=== PATIENT | female | born 1960 | race Caucasian/White ===

== ENCOUNTER 2024-08-29 15:24 | Emergency (ER) | payer BC, SELFPAY ==
[2024-08-29 15:26] VITALS: BP 138/85
[2024-08-29 16:15] LABS: % Basophils 0.6 % (0-2); % Eosinophils 1.4 % (0-6); % Immature Granulocytes 0.3 % (0-0.5); % Lymphocytes 43.3 % (20.5-51.1); % Monocytes 14.2 % (1.7-9.3); % Neutrophils 40.2 % (42.2-75.2); Absolute Eosinophils 0.1 10^3/uL (0-0.7); Absolute Lymphocytes 1.6 10^3/uL (1.2-3.4); Absolute Monocytes 0.5 10^3/uL (0.1-0.6); Absolute Neutrophils 1.4 10^3/uL (1.4-6.5); Hematocrit 41.5 % (37.0-47.0); Hemoglobin 13.6 g/dL (12.0-16.0); Mean Corp Hgb Conc. 32.8 g/dL (33.0-37.0); Mean Corpuscular Hgb 28.9 pg (27.0-31.0); Mean Corpuscular Volume 88.3 fL (81.0-99.0); Mean Platelet Volume 10.7 fL (7.4-10.4); Nucleated Red Blood Cells % 0 %; Platelet Count 209 10^3/uL (130-400); Red Cell Dist. Width 12.6 % (11.5-14.5); White Blood Cell Count 3.6 10^3/uL (4.8-10.8)
[2024-08-29 16:28] LABS: ALT (SGPT) 243 U/L (0-35); AST (SGOT) 112 U/L (14-36); Albumin 4.5 g/dl (3.5-5.0); Alkaline Phosphatase 63 U/L (38-126); Blood Urea Nitrogen 18 mg/dl (7-17); Calcium 9.3 mg/dl (8.4-10.2); Carbon Dioxide 25 mmol/L (22-30); Chloride 102 mmol/L (98-107); Glucose 81 mg/dl (70-99); Potassium 4.4 mmol/L (3.5-5.1); Sodium 137 mmol/L (135-145); Total Bilirubin 0.2 mg/dl (0.2-1.3); Total Protein 7.1 g/dl (6.3-8.2); eGFR > 60.00
[2024-08-29 16:52] LABS: COVID-19 Antigen Negative (Negative)
[2024-08-29 20:00] LABS: Urine Albumin Negative (Neg - Trace); Urine Bilirubin Negative (Negative); Urine Character Clear (Clear); Urine Color Straw; Urine Glucose Negative (Negative); Urine Ketone Negative (Negative); Urine Leukocyte Negative (Negative); Urine Nitrite Negative (Negative); Urine Occult Blood Negative (Negative); Urine Specific Gravity 1.005 (<1.030); Urine Urobilinogen Negative (Neg - 1+)
--- NOTE | 2024-08-29 20:05 | ED.GENMED ---
History of Present Illness
General
Chief Complaint: Hyper/Hypo Thermia Problem
Time Seen by Provider: 08/29/24 18:53
History of Present Illness
History of Present Illness:
64-year-old female presents to the emergency department for evaluation of tactile fever with low temperatures at home. Notes that her thermometer was reading 9495 �F during periods of tactile fevers. Ongoing for the past 3 to 4 days. Multiple
members of her household with influenza. No chest pain or dyspnea. Denies any dysuria, rashes, nausea, vomiting, or diarrhea.
Past History
Past History
ED Past Medical History: GERD, Other (kidney stones) and Other (migraines)
ED Past Surgical History: Appendectomy, Cholecystectomy and Gynecological (hysterectomy)
Social History
Personal:
Living: with family
Review of Systems
Review of Systems
Allergies reviewed?: Yes
All Other Systems: ROS reviewed and negative except as documented in HPI and ROS
Phy Exam
Physical Exam
Physical Exam:
GEN: Well appearing, NAD, WDWN
HEENT: Oral mucosa moist, no scleral icterus
Cardiac: Regular rate and rhythm, no murmurs
Lung: No respiratory distress, no tachypnea, lungs clear to auscultation bilaterally
MSK: No gross deformity or injuries
Skin: Good color, no pallor or jaundice, no rashes
Neuro: AO x3, moves all extremities freely
Psych: Calm, cooperative
Course
Orders/Labs/Results
Orders:
Orders
08/29/24 15:40
COVID-19 Antigen Urgent
Source: Nasal Swab
Complete Blood Count/With Diff Urgent
Comprehensive Metabolic Panel Urgent
Influenza A+B Rapid Molecular Urgent
JOSI Source: Nasal Swab
Specimen Description:
08/29/24 19:31
CR Chest - 2 Views Urgent
Comment:
Reason For Exam: fever
08/29/24 19:51
Urinalysis Reflex To Culture Urgent
Date Specimen was Collected: 08/29/24
Time Specimen was Collected: 19:49
Abnormal Lab Results
08/29/24
15:40
WBC 3.6 L 10^3/uL
(4.8-10.8)
MCHC 32.8 L g/dL
(33.0-37.0)
MPV 10.7 H fL
(7.4-10.4)
Neutrophils % 40.2 L %
(42.2-75.2)
Monocytes % 14.2 H %
(1.7-9.3)
BUN 18 H mg/dl
(7-17)
AST 112 H U/L
(14-36)
ALT 243 H U/L
(0-35)
08/29/24 15:40
08/29/24 15:40
Vital Signs
Initial and Last Documented VS:
Initial Vital Signs
Temp Pulse Resp BP Pulse Ox
97.8 F 82 18 138/85 100
08/29/24 15:26 08/29/24 15:26 08/29/24 15:26 08/29/24 15:26 08/29/24 15:26
Last Documented Vital Signs
Temp Pulse Resp BP Pulse Ox
97.4 F 82 18 138/85 100
08/29/24 20:13 08/29/24 15:26 08/29/24 15:26 08/29/24 15:26 08/29/24 15:26
MDM/Problems Addressed
MDM/Problems Addressed:
Workup is bland, mild leukopenia and mild transaminitis most likely career representative of viral etiology. No abdominal tenderness on exam concerning for biliary etiology. Discussed supportive care and return parameters
*Critical Care Note
Total Time (30-74mins, 75-104mins- exclusive of procedures): Not Applicable
ED Attending Note
-
Portions of this chart may have been created with voice recognition software.� Occasional wrong word or��sound alike� substitutions may have occurred due to the inherent limitations of voice recognition software.
Discharge Plan
Departure
Patient Disposition: Home (Routine Discharge)
Date of Disposition: 08/29/24
Time of Disposition: 20:05
Patient with high blood pressure during this ER visit?: No
Discharge Problem:
Acute viral syndrome
Instructions: Flu in adults - Discharge instructions
Prescriptions:
No Action
dicyclomine 10 MG capsule
10 mg PO QIDPRN PRN (Reason: abdominal pain) Qty: 20 0RF
Referrals:
Mayank De Paz DO [Family Provider] -
Interventions
Interventions:
*Risk Screen - Suicide Last Done: 08/29/24 20:28
*General Assessment Last Done: 08/29/24 20:28
*Neglect/Abuse Screening Last Done: 08/29/24 20:28
*Nursing Disposition Last Done: 08/29/24 20:28
ED- Neurological Assessment Last Done: 08/29/24 20:27
ED-Skin Assessment Last Done: 08/29/24 20:27
Discharge Date and Time
Discharge Date/Time: 08/29/24 20:28
Print Language: CYPRIOT
== END 2024-08-29 20:28 | disposition home or self-care (01) ==
LOC: EMR 15:24
PROVIDERS: Physician Assistant; EMERGENCY PHYSICIAN Emergency Medicine; FAMILY PHYSICIAN Family Medicine
DX: B34.9 Viral infection, unspecified (principal); K21.9 Gastro-esophageal reflux disease without esophagitis; Z90.49 Acquired absence of other specified parts of digestive tract; Z90.710 Acquired absence of both cervix and uterus
CPT/HCPCS: 99284; 71046; 80053; 81003; 85025; 87502; 87811